=== PATIENT | female | born 1965 ===

== ENCOUNTER 2018-05-01 09:35 | Emergency (ER) | payer SELFPAY ==
[2018-05-01 09:47] VITALS: BP 148/82; PULSE 84; RESP 18; TEMP 98.7; O2SAT 99
--- NOTE | 2018-05-01 10:35 | C.PDOC ---
History Of Present Illness 52 year old female with a Hx of diabetes and HTN presents to the ER with a complaint of abdominal bloating and nausea occasionally for the past few months. Patient reports she is complaint with her medications. Patient states she has not had a physical this year and wants a checkup. Denies vomiting, diarrhea, or fever. Time Seen by Provider: 05/01/18 10:05 Chief Complaint (Nursing): Abdominal Pain History Per: Patient History/Exam Limitations: no limitations Onset/Duration Of Symptoms: Days, Intermittent Episodes Current Symptoms Are (Timing): Still Present Recent travel outside of the [place]: No Past Medical History Reviewed: Historical Data, Nursing Documentation, Vital Signs Vital Signs: Last Vital Signs Temp 98.7 F 05/01/18 09:43 Pulse 84 05/01/18 09:43 Resp 18 05/01/18 09:43 BP 148/82 05/01/18 09:43 Pulse Ox 99 05/01/18 10:40 - Medical History PMH: HTN Family History: States: Unknown Family Hx - Social History Hx Alcohol Use: No Hx Substance Use: No - Immunization History Hx Tetanus Toxoid Vaccination: No Hx Influenza Vaccination: No Hx Pneumococcal Vaccination: No Review Of Systems Constitutional: Negative for: Fever, Chills Cardiovascular: Negative for: Chest Pain, Palpitations Respiratory: Negative for: Cough, Shortness of Breath Gastrointestinal: Positive for: Nausea, Other (Bloating). Negative for: Vomiting Neurological: Negative for: Headache Physical Exam - Physical Exam Appears: Non-toxic, No Acute Distress Skin: Normal Color, Warm, Dry Head: Atraumatic, Normacephalic Eye(s): bilateral: Normal Inspection, EOMI Oral Mucosa: Moist Neck: Normal ROM Chest: Symmetrical, No Tenderness Cardiovascular: Rhythm Regular Respiratory: Normal Breath Sounds, No Rales, No Rhonchi, No Wheezing Gastrointestinal/Abdominal: Bowel Sounds, Soft, No Tenderness, No Mass, No Distention, No Hernia, No Ascites Back: Normal Inspection, No CVA Tenderness Extremity: Bilateral: Atraumatic, No Pedal Edema, Normal ROM Neurological/Psych: Oriented x3, Normal Speech, Other (No focal deficits) Gait: Steady ED Course And Treatment O2 Sat by Pulse Oximetry: 99 (Room air) Pulse Ox Interpretation: Normal Medical Decision Making Medical Decision Making: Patient's glucose was checked and found to be within normal limits given her diabetic history. Patient has complaints of chronic abdominal bloating and currently not in any pain. Abdomen soft and non-tender. Based on history and exam no further workup indicated at this time. I explained to patient if she wants a physical and routine bloodwork she can follow up in the clinic. Patient is resting comfortably in no distress at this time, vitals are stable; will discharge home with Rx to help with abdominal discomfort and given instructions to follow up for further evaluation or return if symptoms worsen. Disposition Counseled Patient/Family Regarding: Diagnosis, Need For Followup, Rx Given - Disposition Referrals: Keila Cotto MD [Staff Provider] - Disposition: HOME/ ROUTINE Disposition Time: 10:33 Condition: GOOD Additional Instructions: Take medication daily for abdominal pain and follow up in the clinic in 1-2 weeks Keep journal with daily food intake and symptoms Continue with your usual medications [place] medicamentos diariamente para el dolor abdominal y hannah un seguimiento en la clnica en 1-2 semanas Mantenga un diario con la ingesta diaria de alimentos y los sntomas Contina con tus medicamentos habituales Prescriptions: Ranitidine HCl 300 mg PO DAILY #14 capsule Instructions: Dyspepsia Forms: [employer] (Latvian) Print Language: GRENADIAN - POA Present On Arrival: None - Clinical Impression Clinical Impression: Dyspepsia - Scribe Statement The provider has reviewed the documentation as recorded by the Scribe George Calhoun All medical record entries made by the Scribe were at my direction and personally dictated by me. I have reviewed the chart and agree that the record accurately reflects my personal performance of the history, physical exam, medical decision making, and the department course for this patient. I have also personally directed, reviewed, and agree with the discharge instructions and disposition.
== END 2018-05-01 11:23 | disposition home or self-care (01) ==
LOC: C.ER 09:35
DX: R10.13 Epigastric pain (principal)

== ENCOUNTER 2018-05-22 21:50 | Emergency (ER) | payer SELFPAY ==
[2018-05-22] MEDS ORDERED: Sodium Chloride 0.9% 1,000 ML IV ONE (22:44)
[2018-05-22 22:55] LABS: BASO % 0.2 % (0.0-2.0); EOS # 0.1 K/uL (0.0-0.7); EOS % 0.9 % (0.0-4.0); HEMOGLOBIN 10.4 g/dL (11.0-16.0); LYMPH # 2.4 K/uL (1.0-4.3); LYMPH % 29.7 % (20.0-40.0); MEAN CELL VOLUME 82.2 fL (81.0-99.0); MEAN CORPUSCULAR HEMOGLOBIN 27.1 pg (27.0-31.0); MEAN PLATELET VOLUME 7.6 fL (7.2-11.7); MONO # 0.3 K/uL (0.0-0.8); MONO % 3.9 % (0.0-10.0); NEUT # 5.3 K/uL (1.8-7.0); NEUT % 65.3 % (50.0-75.0); RBC 3.85 Mil/uL (3.80-5.20); RED CELL DISTRIBUTION WIDTH 15.2 % (11.5-14.5); WHITE BLOOD COUNT 8.1 K/uL (4.8-10.8)
[2018-05-22] MEDS ORDERED: Sodium Chloride 0.9% 1,000 ML ONE (23:07)
[2018-05-22 23:19] LABS: ALB/GLOB RATIO 1.2 (1.0-2.1); ALBUMIN 4.6 g/dL (3.5-5.0); ALT/SGPT 31 U/L (9-52); AST/SGOT 26 U/L (14-36); BLOOD UREA NITROGEN 17 mg/dL (7-17); CALCIUM 9.2 mg/dl (8.6-10.4); GFR AFRICAN-AMERICAN > 60; GFR NON-AFRICAN AMERICAN > 60; LIPASE 143 U/L (23-300)
[2018-05-23 00:09] LABS: HCG,QUALITATIVE URINE NEGATIVE (NEGATIVE)
[2018-05-23 00:31] LABS: SQUAMOUS EPITHIAL 1 /hpf (0-5); URINE BILIRUBIN NEGATIVE (NEGATIVE); URINE CLARITY Clear (Clear); URINE COLOR Yellow (YELLOW); URINE GLUCOSE (UA) 2+ mg/dL (Normal); URINE LEUKOCYTE ESTERASE NEG Leu/uL (Negative); URINE PROTEIN 2+ mg/dL (NEGATIVE); URINE UROBILINOGEN NORMAL mg/dL (0.2-1.0)
[2018-05-23 00:34] LABS: URINE BLOOD NEGATIVE (NEGATIVE)
--- NOTE | 2018-05-23 00:44 | C.PDOC ---
Time Seen by Provider: 05/22/18 22:38 Chief Complaint (Nursing): Dizziness/Lightheaded History Per: Patient, Family, Edger Automatic History/Exam Limitations: language barrier Onset/Duration Of Symptoms: Hrs (this afternoon), Waxing/Waning Current Symptoms Are (Timing): Still Present Associated Symptoms Preceding Syncopal Episode: Vertigo Fall Associated With With Symptoms: No Severity: Moderate Additional History Per: Prior Records - Symptoms Of CVA Recent Head Trauma: No Past Medical History Reviewed: Historical Data, Nursing Documentation, Vital Signs Vital Signs: Last Vital Signs Temp 97.8 F 05/22/18 22:18 Pulse 68 05/23/18 00:37 Resp 16 05/23/18 00:37 BP 124/73 05/23/18 00:37 Pulse Ox 98 05/23/18 00:46 - Medical History PMH: Diabetes, HTN Surgical History: Family History: States: Unknown Family Hx - Social History Hx Tobacco Use: No Hx Alcohol Use: No Hx Substance Use: No - Immunization History Hx Tetanus Toxoid Vaccination: No Hx Influenza Vaccination: No Hx Pneumococcal Vaccination: No Review Of Systems Except As Marked, All Systems Reviewed And Found Negative. Constitutional: Negative for: Fever ENT: Negative for: Ear Pain, Ear Discharge Cardiovascular: Negative for: Chest Pain Respiratory: Negative for: Shortness of Breath Gastrointestinal: Positive for: Nausea, Vomiting, Abdominal Pain. Negative for : Diarrhea, Constipation, Melena, Hematochezia, Hematemesis Genitourinary: Positive for: Vaginal Bleeding (Pt states she has her menstrual period now.). Negative for: Dysuria Musculoskeletal: Negative for: Neck Pain Skin: Negative for: Rash Neurological: Positive for: Dizziness. Negative for: Weakness, Numbness, Seizures, Altered Mental Status, Headache Physical Exam - Physical Exam Appears: Non-toxic, Other (Vomiting) Skin: Normal Color, Warm, Dry, No Rash Head: Atraumatic, Normacephalic Eye(s): bilateral: PERRL, EOMI Neck: Normal ROM, Supple Cardiovascular: Rhythm Regular Respiratory: Normal Breath Sounds, No Accessory Muscle Use Gastrointestinal/Abdominal: Soft, No Tenderness Back: No CVA Tenderness Extremity: Normal ROM Neurological/Psych: Oriented x3, No Cerebellar Signs, Normal Motor, Normal Sensation ED Course And Treatment - Laboratory Results Result Diagrams: 05/22/18 22:52 05/22/18 22:52 Urine POC: Negative ECG: Interpreted By Me, Viewed By Me ECG Rhythm: Sinus Rhythm, Nonspecific Changes ECG Interpretation: No Acute Changes Interpretation Of ECG: LVH Rate From EC O2 Sat by Pulse Oximetry: 98 Pulse Ox Interpretation: Normal Progress - Interventions Interventions:: Observation, Intravenous fluid - Medications Administered Oral: Other (Meclizine) Intravenous: Antiemetic, H-2 charli - Data Reviewed Data Reviewed: Lab, EKG, Old records - Patient Status Patient status: Partially improved - Continuity of Care Discussed patient case with:: Patient, Family-HIPPA compliant, ED Nurse Disposition - Disposition Disposition Time: 00:56 Condition: FAIR - Clinical Impression Clinical Impression: Dizziness, Nausea and vomiting Physician Patient Turnover Patient Signed Over To: Twin Mathews Handoff Comments: to f/up CT head and reassess/dispo pt.
[2018-05-23 01:59] VITALS: BP 116/68; PULSE 84; RESP 22; O2SAT 99
[2018-05-23 02:27] VITALS: TEMP 98
--- NOTE | 2018-05-23 08:24 | CT ---
PROCEDURE: CT HEAD WITHOUT CONTRAST. HISTORY: Dizziness COMPARISON: None available. TECHNIQUE: Axial computed tomography images were obtained through the head/brain without intravenous contrast. Radiation dose: Total exam DLP = 836 mGy-cm. This CT exam was performed using one or more of the following dose reduction techniques: Automated exposure control, adjustment of the mA and/or kV according to patient size, and/or use of iterative reconstruction technique. FINDINGS: HEMORRHAGE: No intracranial hemorrhage. BRAIN: No mass effect or edema. No atrophy or chronic microvascular ischemic changes. VENTRICLES: Unremarkable. No hydrocephalus. CALVARIUM: Unremarkable. PARANASAL SINUSES: Unremarkable as visualized. No significant inflammatory changes. MASTOID AIR CELLS: Unremarkable as visualized. No inflammatory changes. OTHER FINDINGS: None. IMPRESSION: No acute intracranial abnormality. If symptoms persists, consider MRI. These findings were preliminarily reported at 2:05 a.m. on 05/23/[address] Subhash Nicolas from [facility].
--- NOTE | 2018-05-23 19:34 | CARD ---
APPROVED REPORT EKG Measurement Heart [id number] <Conclusion> Normal sinus rhythm Voltage criteria for left ventricular hypertrophy Abnormal ECG
== END 2018-05-23 02:27 | disposition home or self-care (01) ==
LOC: C.ER 21:50
DX: R42 Dizziness and giddiness (principal); R11.2 Nausea with vomiting, unspecified; I10 Essential (primary) hypertension; E11.9 Type 2 diabetes mellitus without complications
CPT/HCPCS: 70450; 80053; 81001; 82948; 83690; 84484; 84703; 85025; 93005; 96361; 96374; 96375; 99285; J2405; J2765; J7030

== ENCOUNTER 2019-04-13 10:21 | Emergency (ER) | payer OTHER ==
[2019-04-13 10:31] VITALS: RESP 20
--- NOTE | 2019-04-13 11:22 | C.PDOC ---
History Of Present Illness 53 year old female presents to the ED complaining of cough for 3 days but worse since yesterday. Associated symptoms include body aches, headache and chest pain with cough. Cough is non-productive. Reports she has been taking Acetaminophen. Denies any shortness of breath, sore throat, nausea, vomiting, fever, or chills. Denies sick contacts or recent travels. Time Seen by Provider: 04/13/19 10:58 Chief Complaint (Nursing): Chest Pain History Per: Patient History/Exam Limitations: no limitations Onset/Duration Of Symptoms: Days Current Symptoms Are (Timing): Still Present Location Of Pain: Diffuse Myalgias, Headache Sick Contacts (Context): None Associated Symptoms: Cough. denies: Fever, Chills, Sore Throat, Nausea, Vomiting, Diarrhea Past Medical History Reviewed: Historical Data, Nursing Documentation, Vital Signs Vital Signs: Last Vital Signs Temp 98.6 F 04/13/19 10:28 Pulse 104 H 04/13/19 10:28 Resp 20 04/13/19 10:28 BP 137/87 04/13/19 10:28 Pulse Ox 100 04/13/19 10:28 Primary Care Provider: Morgan,Med Surg - Medical History PMH: Diabetes, HTN Surgical History: Family History: States: No Known Family Hx - Social History Hx Tobacco Use: No Hx Alcohol Use: No Hx Substance Use: No - Immunization History Hx Tetanus Toxoid Vaccination: No Hx Influenza Vaccination: No Hx Pneumococcal Vaccination: No Review Of Systems Except As Marked, All Systems Reviewed And Found Negative. Constitutional: Positive for: Other (bodyaches). Negative for: Fever, Chills ENT: Negative for: Throat Pain Cardiovascular: Positive for: Chest Pain Respiratory: Positive for: Cough. Negative for: Shortness of Breath Gastrointestinal: Negative for: Nausea, Vomiting, Diarrhea Neurological: Positive for: Headache Physical Exam - Physical Exam Appears: Well, Non-toxic, No Acute Distress Skin: Warm, Dry, No Rash Head: Atraumatic, Normacephalic Eye(s): bilateral: Normal Inspection, EOMI Ear(s): Bilateral: Normal (no erythema) Nose: Normal Oral Mucosa: Moist Neck: Normal ROM, Supple Chest: Symmetrical Cardiovascular: Rhythm Regular, No Murmur Respiratory: Normal Breath Sounds, No Rales, No Rhonchi, No Wheezing Gastrointestinal/Abdominal: Soft, No Tenderness Neurological/Psych: Oriented x3, Normal Speech Gait: Steady ED Course And Treatment O2 Sat by Pulse Oximetry: 100 (RA) Pulse Ox Interpretation: Normal Medical Decision Making Medical Decision Making: Impression: cough and bodyaches, likely viral Plan: - CXR CXR shows no infiltrates, effusion or other abnormality Disposition Counseled Patient/Family Regarding: Diagnosis, Need For Followup, Rx Given - Disposition Disposition: HOME/ ROUTINE Disposition Time: 11:45 Condition: GOOD Additional Instructions: Tiene alyssa infeccin viral de las vas respiratorias superiores. [place] medicamentos para la tos segn sea necesario cada 8 horas. [place] Tylenol o Advil para cualquier dolor y dolor o fiebre Beber lquidos y descansar. 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 - Scribe Statement The provider has reviewed the documentation as recorded by the Scribramy Yang All medical record entries made by the Scribe were at my direction and personally dictated by me. I have reviewed the chart and agree that the record accurately reflects my personal performance of the history, physical exam, medical decision making, and the department course for this patient. I have also personally directed, reviewed, and agree with the discharge instructions and disposition.
[2019-04-13 11:43] VITALS: BP 123/89; PULSE 88; TEMP 98.2
--- NOTE | 2019-04-13 12:15 | RAD ---
HISTORY: cough COMPARISON: None available. TECHNIQUE: Chest PA and lateral, 2 views FINDINGS: LUNGS: No focal consolidation. Please note that chest x-ray has limited sensitivity for the detection of pulmonary masses. PLEURA: No significant pleural effusion identified. No definite pneumothorax . CARDIOVASCULAR: The cardiomediastinal silhouette appears within normal limits of size. Atherosclerotic calcifications present. OSSEOUS STRUCTURES: Degenerative changes. VISUALIZED UPPER ABDOMEN: Unremarkable. OTHER FINDINGS: None. IMPRESSION: No acute findings identified.
[2019-04-13 15:03] VITALS: O2SAT 100
== END 2019-04-13 11:46 | disposition home or self-care (01) ==
LOC: C.ER 10:21
DX: J06.9 Acute upper respiratory infection, unspecified (principal); I10 Essential (primary) hypertension